=== PATIENT | female | born 1965 | race Asian ===

== ENCOUNTER 2019-07-22 20:59 | Emergency (ER) | payer BC ==
[~2019-07-22] VITALS: Ht 157.5 cm; Wt 60.8 kg
[2019-07-22 21:05] VITALS: BP 102/66
--- NOTE | 2019-07-22 21:05 | NUR ---
TO BED # 06 AMBULATORY
--- NOTE | 2019-07-22 21:24 | NUR ---
PT ASSESMENT COMPLETE. FAMILY AT BEDSIDE. WILL CONTINUE TO MONITOR.
--- NOTE | 2019-07-22 21:35 | NUR ---
FREDI LINN WITH PT
--- NOTE | 2019-07-22 21:48 | NUR ---
PT ORAL TEMP OF 99.1. PT PLACED IN A GOWN.
--- NOTE | 2019-07-22 21:53 | NUR ---
LAB AT BEDSIDE FOR BLOOD DRAW
--- NOTE | 2019-07-22 21:55 | NUR ---
PT REQUESTED TO SEE FREDI BUTCHER BEFORE LAB WORK IS DRAWN. HADLEY NOTIFIED.
[2019-07-22] MEDS ORDERED: KETOROLAC 30 MG/ML VIAL IM ONE (22:05)
--- NOTE | 2019-07-22 22:18 | NUR ---
FLU SWAB COLLECTED AND GIVEN TO LAB.
--- NOTE | 2019-07-22 22:23 | NUR ---
PT AMBULATED TO RESTROOM. STEADY GAIT OBSERVED
[2019-07-22 22:26] LABS: EOSINOPHILS % (AUTO) 0.1 % (0.0-4.0); MONOCYTES # (AUTO) 1.4 K/uL (0.8-1.0)
[2019-07-22 22:29] LABS: BASOPHILS # (AUTO) 0.2 K/uL (0.00-0.22); BASOPHILS % (AUTO) 1.1 % (0.0-2.0); LYMPHOCYTES # (AUTO) 1.9 K/uL (2.5-16.5); LYMPHOCYTES % (AUTO) 13.1 % (20.5-51.1); MEAN CORPUSCULAR HEMOGLOBIN 30 pg (27-31); MEAN CORPUSCULAR HGB CONC 33 g/dL (33-37); MEAN CORPUSCULAR VOLUME 90.4 fL (80-94); MONOCYTES % (AUTO) 9.7 % (1.7-9.3); NEUTROPHILS # (AUTO) 10.8 K/uL (1.8-7.7); PLATELET COUNT (AUTO) 235 K/uL (140-450); RED BLOOD CELL COUNT(AUTO) 1.63 MIL/uL (4.20-5.40); WHITE BLOOD COUNT (AUTO) 14.2 K/uL (4.8-10.8)
[2019-07-22 22:46] LABS: ALBUMIN 3.3 g/dL (3.4-5.0); ANION GAP 9.9 (8-16); CARBON DIOXIDE 24.6 mmol/L (21-32); CREATININE 0.8 mg/dL (0.6-1.3); POTASSIUM 3.5 mmol/L (3.5-5.1); TOTAL BILIRUBIN 0.1 mg/dL (0.0-1.0)
--- NOTE | 2019-07-22 22:52 | NUR ---
PT AMBULATED TO RESTROOM. STEADY GAIT OBSERVED. PT REPORTS "ALOT OF BLOOD" IN URINE. FREDI LINN NOTIFIED.
[2019-07-22 23:32] LABS: HEMOGLOBIN 4.9 g/dL (12.0-16.0)
[2019-07-22 23:33] LABS: HEMATOCRIT 14.7 % (36-48)
[2019-07-22] MEDS ORDERED: NACL 0.9% 1,000 ML IV ONE (23:40)
--- NOTE | 2019-07-22 23:51 | NUR ---
PT REFUSING TO SIGN CONSENT FOR BLOOD TRANSFUSION UNTIL SHE KNOWS THAT INSURANCE WILL COVER HOSPITAL STAY. DR. MIXON INFORMED.
--- NOTE | 2019-07-22 23:59 | NUR ---
SPOKE WITH RICKY, CASE MANAGEMENT TO PROVIDE PT INFORMATION
--- NOTE | 2019-07-23 00:46 | NUR ---
Consent signed per pt agreeing to administration of blood. Blood has been type and crossmatched. Blood sent from blood bank. Information on unit of blood checked against patient wristband at bedside by two nurses. All information matches. Patient or responsible alliance party informed of potential complications associated with blood transfusion. Informed of possible transfusion reaction symptoms. Aware of need to notify nurse at once of itching, shortness of breath, flushing, feeling of impending doom, or other symptoms not previously present. Vital signs taken within 5 minutes prior to initiation of transfusion. RN will remain with patient for first 15 minutes of transfusion at which time vital signs will be re-assessed.
--- NOTE | 2019-07-23 00:46 | NUR ---
BLOOD TRANSUFSION INITATED.
--- NOTE | 2019-07-23 01:06 | NUR ---
PT DENIES ANY PAIN, ITCHING AFTER INITIATION OF BLOOD TRANSFUSION. VSS. NO RASH NOTED.
--- NOTE | 2019-07-23 01:15 | NUR ---
NO ADVERSE REACTION FROM BLOOD TRANSFUSION. INFUSION RATE INCREASED TO 120ML/HR.
--- NOTE | 2019-07-23 01:49 | NUR ---
PT DENIES ANY PAIN OR ITCHING TO GENERAL BODY. NO RASH NOTED THROUGHOUT BODY. VSS. PT TOLERATING BLOOD TRANSFUSION WELL WITH REACTION. Addendum: 07/23/19 at 0419 by [email or web address] PT DENIES ANY PAIN OR ITCHING TO GENERAL BODY. NO RASH NOTED THROUGHOUT BODY. VSS. PT TOLERATING BLOOD TRANSFUSION WELL WITH NO REACTION AT THIS TIME
--- NOTE | 2019-07-23 02:08 | NUR ---
ASSISTED PT ONTO BEDPAIN. MODERATE BLOOD CLOT NOTED IN BEDPAN. ERMD NOTIFIED.
--- NOTE | 2019-07-23 02:53 | NUR ---
CALLED [facility] AND [facility] TO GIVE PT REPORT. NO ETA OF TRANSFER AT THIS TIME.
--- NOTE | 2019-07-23 03:09 | NUR ---
BLOOD TRANSFUSION COMPLETE. VSS. WILL CONTINUE TO MONITOR.
[2019-07-23] MEDS ORDERED: MEDR10TA PO (03:44)
[2019-07-23] MEDS ORDERED: FERR325E14 PO (03:44)
--- NOTE | 2019-07-23 04:18 | NUR ---
PT SEEN WITH EYES CLOSED. VISIBLE CHEST RISE AND FALL NOTED. VSS. O2 SAT MAINTAINED AT 100% RA. WILL CONTINUE TO MONITOR.
--- NOTE | 2019-07-23 05:15 | NUR ---
PT AMBULATED TO RESTROOM, STEADY GAIT OBSERVED.
[2019-07-23 05:20] VITALS: BP 93/45
--- NOTE | 2019-07-23 05:27 | NUR ---
[facility] AT BEDSIDE
--- NOTE | 2019-07-23 05:38 | NUR ---
CALLED [facility], [facility] TO INFORM HIM THAT PT IS EN ROUTE.
--- NOTE | 2019-07-23 05:39 | NUR ---
PT TAKEN BY [facility] TO [facility] ROOM 218 BED 1
--- NOTE | 2019-07-23 05:40 | NUR ---
PATIENT DISCHARGED TO [facility]. VSS AT TIME OF TRANSFER.
--- NOTE | 2019-07-23 05:40 | NUR ---
CALLED YUDITH DOBBS TO INFORM HER THAT HER MOTHER HAS BEEN TRANSFERRED TO [facility].
== END 2019-07-23 05:39 | disposition short-term general hospital (02) ==
LOC: MED 20:59
DX: J06.9 Acute upper respiratory infection, unspecified (principal); N89.8 Other specified noninflammatory disorders of vagina; R53.1 Weakness
CPT/HCPCS: 36415; 80053; 81002; 85025; 86886; 86900; 86901; 86920; 87804; 96360; 96372; 99283; J1885; J7030; P9016